=== PATIENT | female | born 1950 | race Caucasian/White ===

== ENCOUNTER → 2017-10-05 | Outpatient (CLI) | payer MEDICARE, OTHER ==
--- NOTE | 2017-10-15 15:19 | KCIC ---
DATE: 10/05/2017 EXAM: MAMMO SABA SCREENING BILATERAL Bilateral digital screening mammography to include digital breast tomosynthesis (3D mammography) HISTORY: Screening study. COMPARISON: 09/25/2016 This study was interpreted with the benefit of Computerized Aided Detection (CAD). The breast parenchyma is heterogeneously dense, which could reduce sensitivity of mammography. Breast parenchyma level C. FINDINGS: Digital MLO and CC mammograms of both breasts were obtained. Additionally digital breast tomosynthesis (3D mammography) images of both breasts in the MLO and CC projections were performed. Comparison is made to the patient's outside mammograms from [facility] in [place], [place] dated 09/25/2016. The breast parenchyma is heterogeneously dense which can obscure a lesion on mammography (breast density code C). No spiculated mass is seen. No malignant appearing calcification or area of architectural distortion is noted. Benign-appearing calcifications are seen within both breasts. These are unchanged. Digital breast tomosynthesis images demonstrate no spiculated mass or malignant appearing calcification. Since the previous examination there has been no significant interval change. IMPRESSION: BI-RADS Category 1, negative. There is no mammographic evidence of malignancy. Routine yearly screening mammography is recommended for follow-up. BI-RADS CATEGORY: 1 NEGATIVE RECOMMENDED FOLLOW-UP: 12M 12 MONTH FOLLOW-UP PQRS compliance statement: Patient information was entered into a reminder system with a target due date 10/05/2018 for the next mammogram. Mammography is a sensitive method for finding small breast cancers, but it does not detect them all and is not a substitute for careful clinical examination. A negative mammogram does not negate a clinically suspicious finding and should not result in delay in biopsying a clinically suspicious abnormality. "Our facility is accredited by the [employer] Mammography [employer]."
== END | disposition home or self-care (01) ==
LOC: KCIC MAMMO 08:53
PROVIDERS: ATTEND Family Medicine
DX: Z12.31 Encounter for screening mammogram for malignant neoplasm of breast (principal)
CPT/HCPCS: 77063; G0202; 77067

== ENCOUNTER → 2018-07-25 | Outpatient (CLI) | payer MEDICARE, OTHER ==
--- NOTE | 2018-07-25 13:15 | KCIC ---
EXAM: Lumbar spine, 3 views. HISTORY: Pain. COMPARISON: None. FINDINGS: 3 views of the lumbar spine are obtained. There is grade 1 anterolisthesis of L4 on L5. There is degenerative endplate remodeling and facet arthropathy at all levels. IMPRESSION: 1. Multilevel degenerative change. 2. Grade 1 anterolisthesis of L4 on L5. Electronically signed by: Saundra Pacheco MD (07/25/2018 1:11 PM) [id number]
== END | disposition home or self-care (01) ==
LOC: KCIC 11:03
PROVIDERS: ATTEND Family Medicine
DX: M47.896 Other spondylosis, lumbar region (principal); M43.16 Spondylolisthesis, lumbar region; M12.88 Other specific arthropathies, not elsewhere classified, other specified site
CPT/HCPCS: 72100

== ENCOUNTER → 2018-07-29 | Outpatient (CLI) | payer MEDICARE, OTHER ==
--- NOTE | 2018-07-29 13:54 | RAD ---
EXAM: Lumbar spine MRI without contrast. HISTORY: Back pain. Sciatica. TECHNIQUE: Multiplanar, multisequence magnetic resonance imaging of the lumbar spine was performed without contrast. COMPARISON: Radiographs dated 07/25/2018. FINDINGS: There is mild lumbar scoliosis. There is minimal grade 1 anterolisthesis of L2 on L3 and mild grade 1 anterolisthesis of L4 and L5, measuring 2 mm and 3 mm. There is degenerative endplate remodeling with disc space narrowing and Schmorl's node formation primarily at L5-S1. There are few osseous hemangiomas. No suspicious osseous lesion is seen. The conus terminates at L1. There is slight dorsal peripheral positioning of the nerve roots throughout the cauda equina. Without clear nerve root clumping. At L1-L2, there is no stenosis. At L2-L3, there is a shallow broad-based right foraminal to extraforaminal disc protrusion and left foraminal to extraforaminal annular tear. The superimposed on a disc bulge and endplate remodeling. There is mild to moderate bilateral facet arthropathy. There is minimal anterolisthesis. There is minimal central canal stenosis. At L3-L4, there are left greater than right foraminal to extraforaminal disc protrusions and annular tear superimposed on a disc bulge. There is mild bilateral facet arthropathy. There is mild left foraminal stenosis with abutment of the exiting left L3 nerve root. There is minimal central canal stenosis. At L4-L5, there is a right foraminal to extraforaminal disc protrusion and minimal superior extrusion and annular tear and a left paracentral to foraminal annular tear. These are superimposed on a disc bulge and endplate remodeling. There is moderate right and mild left facet arthropathy. There is grade 1 anterolisthesis. There is mild right foraminal stenosis with abutment of the exiting right L4 nerve root. There is minimal central canal stenosis. At L5-S1, there is a there are left greater than right foraminal disc protrusions and there is a right paracentral to foraminal annular tear. These are superimposed on a disc bulge and endplate osteophytosis. There is no stenosis. IMPRESSION: 1. Multilevel degenerative change within the lumbar spine, described in detail above. This results in mild left foraminal stenosis with abutment of the exiting left L3 nerve root at L3-L4 and mild right foraminal stenosis with abutment of the exiting right L4 nerve root at L4-L5. 2. Mild lumbar scoliosis and anterolisthesis of L2 on L3 and L4 and L5. 3. Slight dorsal peripheral distribution of the nerve roots of the cauda equina. This is likely physiologic. There is no clear nerve root clumping to suggest changes due to arachnoiditis. Electronically signed by: Saundra Pacheco MD (07/29/2018 1:50 PM) [place] [id number]
== END | disposition home or self-care (01) ==
LOC: MRI 12:32
PROVIDERS: ATTEND Family Medicine
DX: M54.42 Lumbago with sciatica, left side (principal); M47.896 Other spondylosis, lumbar region; M48.061 Spinal stenosis, lumbar region without neurogenic claudication; M41.86 Other forms of scoliosis, lumbar region
CPT/HCPCS: 72148

== ENCOUNTER → 2020-08-28 | Outpatient (CLI) | payer MEDICARE, OTHER ==
--- NOTE | 2020-08-28 11:49 | CARD ---
MR#: [id number] Date of Study: 08/28/2020 Ordering Physician: ESTEPHANIA HOYT, Referring Physician: ESTEPHANIA HOYT, Tech: Melissa Cleary APPROVED REPORT EXAM: Two-dimensional and M-mode echocardiogram with Doppler and color Doppler. Other Information Quality : AverageHR: 57bpm INDICATION Murmur RISK FACTORS Hyperlipidemia 2D DIMENSIONS RVDd3.4 (2.9-3.5cm)Left Atrium(2D)2.8 (1.6-4.0cm) IVSd0.8 (0.7-1.1cm)Aortic Root(2D)3.2 (2.0-3.7cm) LVDd4.8 (3.9-5.9cm)LVOT Diameter2.0 (1.8-2.4cm) PWd0.8 (0.7-1.1cm)LVDs3.3 (2.5-4.0cm) FS (%) 30.5 %SV62.2 ml Aortic Valve AoV Peak Andres.139.5cm/sAoV VTI29.4cm AO Peak GR.7.8mmHgLVOT Peak Andres.125.6cm/s LVOT VTI 25.67cmAO Mean GR.4mmHg JOSELYN (VMAX)2.08bh9TJA (VTI)2.74cm2 AI P 1/2 [id number] Mitral Valve MV E Siqhdtnf02.9cm/sMV DECEL [id number] MV A Lrvdzkdi42.3cm/sMV QMP97bk E/A Ratio1.1MVA (PHT)2.92cm2 TDI E/Lateral E'4.9E/Medial E'6.3 Pulmonary Valve PV Peak Hmvoqzhc08.1cm/sPV Peak Grad.3mmHg Tricuspid Valve TR P. Mxvkbkkp849kt/sRAP ENZKRUXQ5onNt TR Peak Gr.34lxJwHIVH73xuVb Pulmonary Vein S1 Xbwhaful34.0cm/sD2 Euzakngj77.0cm/s PVa [id number] LEFT VENTRICLE The left ventricle is normal size. There is normal left ventricular wall thickness. The left ventricu lar systolic function is normal and the ejection fraction is within normal range. The Ejection Fracti on is 50-55%. Wall motion consistent with conduction abnormality. Transmitral Doppler flow pattern is Grade I-abnormal relaxation pattern. RIGHT VENTRICLE The right ventricle is normal size. There is normal right ventricular wall thickness. The right ventr icular systolic function is normal. ATRIA The left atrium size is normal. The right atrium size is normal. The interatrial septum is intact wit h no evidence for an atrial septal defect or patent foramen ovale as noted on 2-D or Doppler imaging. AORTIC VALVE The aortic valve is normal in structure and function. Doppler and Color Flow revealed trace to mild a ortic regurgitation. There is no significant aortic valvular stenosis. Calculated aortic valve area i s 2.84 cm2 with maximum pressure gradient of 9 mmHg and mean pressure gradient of 5 mmHg. MITRAL VALVE The mitral valve is normal in structure and function. There is no evidence of mitral valve prolapse. There is no mitral valve stenosis. Doppler and Color-flow revealed trace mitral regurgitation. TRICUSPID VALVE The tricuspid valve is normal in structure and function. Doppler and Color Flow revealed trace tricus pid regurgitation with an estimated PAP of 26 mmHg. There is no tricuspid valve stenosis. PULMONIC VALVE The pulmonic valve is not well visualized. Doppler and Color Flow revealed no pulmonic valvular regur gitation. GREAT VESSELS The aortic root is normal in size. The IVC is normal in size and collapses >50% with inspiration. PERICARDIAL EFFUSION There is no evidence of significant pericardial effusion. Critical Notification Critical Value: No <Conclusion> The left ventricle is normal size. The left ventricular systolic function is normal and the ejection fraction is within normal range. The Ejection Fraction is 50-55%. Wall motion consistent with conduction abnormality. Doppler and Color Flow revealed trace to mild aortic regurgitation. There is no significant aortic valvular stenosis. Doppler and Color-flow revealed trace mitral regurgitation. Doppler and Color Flow revealed trace tricuspid regurgitation with an estimated PAP of 26 mmHg. Signed by : José Dixon MD Electronically Approved : 08/28/2020 11:49:28
== END ==
LOC: ECHO 10:27
PROVIDERS: ATTEND Internal Medicine Cardiovascular Disease
DX: I35.1 Nonrheumatic aortic (valve) insufficiency (principal); E78.5 Hyperlipidemia, unspecified
CPT/HCPCS: 93306

== ENCOUNTER → 2020-10-30 | Outpatient (CLI) | payer MEDICARE, OTHER ==
--- NOTE | 2020-10-30 17:08 | KCIC ---
Bilateral digital screening mammograms and tomosynthesis Reason for examination: Routine screening. Comparison is made to previous study dated mammogram October 05, 2017 Routine CC and MLO digital views obtained. Interpretation was made with the benefit of CAD. The skin and nipples show no abnormalities. No abnormal axillary lymph nodes are seen. The breast par enchyma is heterogeneously dense. (Breast density: Category C.) There are no suspicious masses, suspi cious calcifications or architectural distortion. Benign right breast calcifications. Impression: Negative mammogram. Recommend routine screening. ?Your patient's mammogram demonstrates that she has dense breast tissue (breast density category C or D), which could hide abnormalities, and if she has other risk factors for breast cancer that have be en identified, she might benefit from supplemental screening tests that may be suggested by you as he r ordering physician. Dense breast tissue, in and of itself, is a relatively common condition. Theref ore, this information is not provided to cause undue concern, but rather to raise your awareness and to promote discussion with your patient regarding the presence of other risk factors, in addition to dense breast tissue. Your patient's mammography results will be sent to her. BI-RAD Category 2: Benign. "Our facility is accredited by the [employer] Mammography [employer]." This patient's information has been entered into a reminder system for the patient to be notified wit h the results of her examination and a target date for the next mammogram. Electronically signed by: Paulo Elder MD (10/30/2020 5:06 PM) [id number]
== END ==
LOC: KCIC MAMMO 08:11
PROVIDERS: ATTEND Family Medicine
DX: Z12.31 Encounter for screening mammogram for malignant neoplasm of breast (principal)
CPT/HCPCS: 77063; 77067

== ENCOUNTER → 2021-11-05 | Outpatient (CLI) | payer MEDICARE, OTHER ==
--- NOTE | 2021-11-05 12:59 | KCIC ---
Bilateral digital screening mammograms with 3-D tomosynthesis: Reason for examination: Routine screening. Comparison is made to previous studies dated back to 01/02/2014. Bilateral mammograms in CC and oblique projections were obtained with 2-D imaging and 3-D tomosynthes is imaging on a Siemens Inspiration unit and reviewed on the workstation. Interpretation was made wit h the benefit of CAD. The skin and nipples show no abnormalities. No abnormal axillary lymph nodes are seen. The breast par enchyma is extremely dense. (Breast density: Category D.) There are no dominant masses, suspicious ca lcifications or architectural distortion. A few benign calcifications are again seen bilaterally. Impression: No evidence of malignancy. Recommend routine screening. Your patient's mammogram demonstrates that she has dense breast tissue (breast density category C or D), which could hide abnormalities, and if she has other risk factors for breast cancer that have bee n identified, she might benefit from supplemental screening tests that may be suggested by you as her ordering physician. Dense breast tissue, in and of itself, is a relatively common condition. Therefo re, this information is not provided to cause undue concern, but rather to raise your awareness and t o promote discussion with your patient regarding the presence of other risk factors, in addition to d ense breast tissue. Your patient's mammography results will be sent to her. BI-RAD Category 2: Benign. "Our facility is accredited by the [employer] Mammography [employer]." This patient's information has been entered into a reminder system for the patient to be notified wit h the results of her examination and a target date for the next mammogram. Electronically signed by: Maddie Villafana MD (11/05/2021 12:56 PM) [id number]
== END ==
LOC: KCIC MAMMO 10:57
PROVIDERS: ATTEND Family Medicine
DX: Z12.31 Encounter for screening mammogram for malignant neoplasm of breast (principal); N64.89 Other specified disorders of breast
CPT/HCPCS: 77063; 77067